=== PATIENT | male | born 1960 | race Caucasian/White ===

== ENCOUNTER → 2017-07-25 | Day surgery (SDC) | payer OTHER ==
--- NOTE | 2017-07-24 09:38 | History & Physical Pre-Op ---
General Information and HPI History of Present Illness: patient presents for evaluation of inguinal hernia. He noted swelling in right groin and brought it to the attention of his PCP, who confirmed the presence of a hernia. He notes mild pain in the region with exertion. No n/v/change to bowel or bladder habits. No inciting event. Allergies/Medications Allergies: Coded Allergies: No Known Allergies (07/24/17) Home Med list Ascorbate Calcium (Vitamin C) (Unknown Strength) TABLET (Unknown Dose) PO DAILY SUPPLEMENT (Reported) Cholecalciferol (Vitamin D3) (Vitamin D) (Unknown Strength) TABLET (Unknown Dose) PO DAILY SUPPLEMENT (Reported) Lisinopril 20 MG TABLET 1 TAB PO DAILY BP (Reported) Multiple Vitamin (Multivitamins) 1 EACH TABLET 1 TAB PO DAILY SUPPLEMENT ( Reported) [place]-3/Dha/Epa/Fish Oil (Fish Oil 1,000 MG Softgel) (Unknown Strength) CAPSULE (Unknown Dose) PO DAILY SUPPLEMENT (Reported) Past History Medical History Cardiovascular: hypertension Surgical History Pertinent Surgical History: cholecystectomy, gastric bypass 2004 Past Family/Social History Psychosocial History Smoking Status: Never Smoked ETOH Use: occasional use Review of Systems Review of Systems: Patient reports arthralgias/joint pain (bilateral knee) but reports no muscle aches, no muscle weakness, and no back pain. He reports no fatigue, no fever, no night sweats, no significant weight gain, no significant weight loss, and no exercise intolerance. He reports no abnormal moles, no jaundice, no hives, no eczema, and no rashes. He reports no dry eyes, no irritation, no vision change, and no discharge. He reports no swollen glands and no neck stiffness. He reports no cough, no wheezing, no shortness of breath, and no coughing up blood. He reports no chest pain, no arm pain on exertion, no shortness of breath when walking, no shortness of breath when lying down, no palpitations, and no known heart murmur. He reports normal appetite, no abdominal pain, no vomiting, no vomiting blood, no bloating, no diarrhea, no belching, no constipation, no regurgitation, and no rectal bleeding. Exam & Diagnostic Data Last 24 Hrs of Vital Signs/I&O Intake & Output 07/24 1600 07/24 0800 07/24 0000 Intake Total Output Total Balance Patient 220 lb Weight Physical Exam: Patient is a 57-year-old male. Constitutional: General Appearance: healthy-appearing, well-nourished, and well- developed. Level of Distress: no acute distress. Ambulation: ambulating normally. Head: Head: normocephalic and atraumatic. Neck: Neck: supple, trachea midline, no masses, and full range of motion. Thyroid: no enlargement or nodules and non-tender. Lymph Nodes: no cervical LAD, supraclavicular LAD, axillary LAD, or inguinal LAD. Cardiovascular: Heart Auscultation: normal S1 and S2; no murmurs, rubs, or gallops; and regular rate and rhythm. Lungs: Respiratory effort: no dyspnea. Percussion: no dullness, flatness, or hyperresonance. Auscultation: no wheezing, rales/crackles, or rhonchi and breath sounds normal, good air movement, and clear to auscultation. Back: Thoracolumbar Appearance: normal curvature. Abdomen: Inspection and Palpation: no tenderness, guarding, masses, rebound tenderness, or CVA tenderness and soft and non-distended. Bowel Sounds: normal. Liver: non-tender and no hepatomegaly. Spleen: non-tender and no splenomegaly. Hernia: inguinal (bilateral reducible, R>L). Skin: Inspection and palpation: no rash, lesions, ulcer, induration, nodules, jaundice, or abnormal nevi and good turgor. Musculoskeletal:: Extremities: no cyanosis, edema, varicosities, or palpable cord. Motor Strength and Tone: normal tone and motor strength. Joints, Bones, and Muscles: no contractures, malalignment, tenderness, or bony abnormalities and normal movement of all extremities. Assessment/Plan Assessment/Plan: Bilateral inguinal hernia - large reducible right, small left. Recommend laparoscopic repair at his convenience. K40.20: Bilateral inguinal hernia, without obstruction or gangrene, not specified as recurrent Discussion Notes Discussed laparoscopic preperitoneal hernia repair with mesh, the need for general anesthesia to perform it and the outpatient nature of surgery. Discussed the outcomes of surgery including 3-5% recurrence rate, 1% infection and bleeding risk. Discussed the permanent nature of mesh for repair and need for removal if infection occurs. Discussed the small risk of testicular vessel injury and vas deferens injury (males). As Ranked By This Provider Problem List: 1. Bilateral inguinal hernia without obstruction or gangrene
[~2017-07-25] VITALS: Ht 182.9 cm; Wt 99.8 kg
[~2017-07-25] MED LIST: FISH OIL 1,0001 EAC2 PO; LISINOPRIL20 M1 PO; MULTIVITAMINS1 EAC9 PO; PERCOCET 5-3251 EACH PO; VITAMIN C500 M6 PO; VITAMIN D1000 UNIT PO
--- NOTE | 2017-07-25 11:03 | Operative Report ---
Operative/Inv Procedure Report Surgery Date: 07/25/17 Name of Procedure: Laparoscopic bilateral inguinal hernia repair Pre-Operative Diagnosis: Bilateral inguinal hernia Post-Operative Diagnosis: Same Estimated Blood Loss: scant Surgeon/Cut Tobacco Bulker: Chepe SOLO,Darell Frausto/Dominic REYNOSO Anesthesia: general endotracheal tube Implants: Parietex mesh Operative Indication: 57-year-old relatively healthy male presents with symptomatic right inguinal hernia. Examination reveals bilateral hernias presents for elective repair Operative/Procedure Note Note: After consent patient is brought to the operating room laid supine. General anesthesia was obtained and the abdomen was prepped and draped. Skin was anesthetized with local anesthesia and a transverse infraumbilical incision made sharply. We identified the rectus fascia and incised transversely. Stay sutures were placed. Rectus muscle was retracted laterally and a dissecting balloon placed posterior to it. It was inflated under direct vision the camera and replaced with a blunt Velasquez port. Gas was instilled. 2, 5 mm ports were placed in the infraumbilical midline after local anesthesia was instilled and under direct vision and camera. Began our dissection at the pubis and delineated the symphysis. Right-sided Phani's ligament was identified and cleared. There is no direct hernia. Then dissected laterally and developed the iliopubic tract. The cord structures were circumferentially dissected. There was a large indirect sac that was delivered from the indirect space and reflected medially. Once the dissection was completed a right -sided piece of Parietex mesh was placed in the cavity. It was placed around the cord structures re-create the internal ring and cover the femoral and direct spaces as well. We then turned attention to the contralateral side. In a similar fashion dissection was carried forth. There was a large cord lipoma which was delivered from the indirect space and reflected medially. Left-sided mesh was placed in a similar fashion. Once were happy the placement of both mesh, gas was allowed to escape on maintaining proper orientation of the mesh. The fascia was closed with 0 Vicryl suture. Skin incisions closed with 4-0 Vicryl. Steri- Strips and sterile dressing applied. Sponge and needle counts are correct. Findings: Bilateral indirect CC: Ivet SOLO,Carrington
== END ==
LOC: STS 07-18 07:00
DX: K40.20 Bilateral inguinal hernia, without obstruction or gangrene, not specified as recurrent (principal); I10 Essential (primary) hypertension; Z98.84 Bariatric surgery status
CPT/HCPCS: C1781; C9399; J0131; J0690; J1100; J2250; J2405